=== PATIENT | male | born 1975 | race Caucasian/White ===

== ENCOUNTER 2019-01-02 18:35 | Emergency (ER) | payer MEDICAID ==
--- NOTE | 2019-01-02 18:30 | EDPHY ---
H & P Time Seen by Provider: 01/02/19 18:44 Constitutional: Initial Vital Signs Temperature (C) 36.8 C 01/02/19 18:45 Heart Rate 109 H 01/02/19 18:45 Respiratory Rate 18 01/02/19 18:45 Blood Pressure 128/87 H 01/02/19 18:45 O2 Sat (%) 97 01/02/19 18:45 O2 Delivery Mode Room Air Allergies/Adverse Reactions: No Known Allergies Allergy (Verified 01/02/19 18:44) Home Medications: Medication Instructions Recorded NK [No Known Home Meds] 06/12/18 Medical Decision Making ED Course/Re-evaluation: CHIEF COMPLAINT: Psychiatric evaluation HISTORY OF PRESENT ILLNESS: The patient is a 43 y/o male arriving via EMS on an M1 hold. The patient was recently discharged from [facility]. Today he was found on the third floor of the old [facility] parking garage wanting to jump. He was able to be talked down and has been cooperative since. No homicidal ideations or hallucinations. No fever, headache, body aches, lightheadedness, chest pain, heart palpitations , shortness of breath, cough, abdominal pain, urinary or bowel complaints, numbness, paresthesias. REVIEW OF SYSTEMS: A comprehensive 10 system review of systems is otherwise negative aside from elements mentioned in the history of present illness and medical decision making. PHYSICAL EXAM: General Appearance: Alert, well hydrated, appropriate, and non-toxic appearing. Head: Atraumatic without scalp tenderness or obvious injury Eyes: Pupils equal, round, reactive to light and accommodation, EOMI, no trauma , no injection. Ears: Clear bilaterally, no perforation, normal landmarks Nose: Atraumatic, no rhinorrhea, clear. Throat: There is no erythema or exudates, no lesions, normal tonsils, mucus membranes moist. Neck: Supple, 2+ carotid upstroke, nontender, no lymphadenopathy. Respiratory: No retractions, no distress, no wheezes, and no accessory muscle use. Lungs are clear to auscultation bilaterally. Cardiovascular: Regular rate and rhythm, no murmurs, rubs, or gallops. Bilateral carotid, radial, dorsalis pedis, and posterior tibial pulses intact. Good capillary refill all extremities. Gastrointestinal: Abdomen is soft, nontender, non-distended, no masses, no rebound, no guarding, no peritoneal signs. Musculoskeletal: Normal active ROM of all extremities, atraumatic. Neurological: Alert, appropriate, and interactive. The patient has normal DTRs and non-focal cranial nerves, motor, sensory, and cerebellar exam. Skin: No rashes, good turgor, no nodules on palpation. Psych: Expresses suicidal ideations. No homicidal ideations. No hallucinations. Past medical history: Depression Past surgical history: Denies Family history: Denies Social history: Single, not employed, transient DIFFERENTIAL DIAGNOSIS: The differential diagnosis for the patient's depression included but was not limited to functional and major depression, situational depression, medication side effect, drugs, and alcohol abuse. MEDICAL DECISION MAKING: The patient is a 43 y/o male arriving via EMS on an M1 hold. The patient was recently discharged from [facility]. Today he was found on the third floor of the old [facility] parking garage wanting to jump. He was able to be talked down and has been cooperative since. No homicidal ideations or hallucinations. Patient is in no acute distress and is hemodynamically stable. We are awaiting psychiatric team's evaluation. Patient has known history of psychiatric disorders and is here for evaluation. Patient care turned over to Dr. Noyola at shift change pending mental health eval. (Nilay Gutierrez) 6:45 a.m.- Patient is stable overnight. Seen by the mental health multimedia producer this morning. They are looking for placement for him at [facility] at this time. The case will be signed out to the oncoming provider Dr. Martinez. (Manuela Noyola ) 8:30 a.m. the patient has been evaluated by Mental Health. They have spoken with the on-call psychiatrist Dr. Delacruz as well as with [facility] who recently discharged him. They all agree that the patient is malingering and looking for fci. They recommend discharge. They have lifted the hold. ( Nicolas Martinez) Differential Diagnosis: Partial list of the Differential diagnosis considered include but were not limited to; malingering, suicidal ideation, depression, anxiety, polysubstance abuse and although unlikely based on the history and physical exam, I also considered head injury, infection. (Nicolas Martinez) - Data Points Laboratory Results: Laboratory Results 01/02/19 18:35 01/02/19 18:35 Departure - Departure Disposition: Home, Routine, Self-Care Clinical Impression: Polysubstance abuse, Malingering Condition: Fair Instructions: Polysubstance Abuse (ED) Referrals: NONE *PRIMARY CARE P,. [Primary Care Provider] - As per Instructions [facility],. [Clinic] - As per Instructions Report Scribed for: Nilay Gutierrez Report Scribed by: Mary Toussaint Date of Report: 01/02/19 Time of Report: 18:33
[2019-01-02 18:51] LABS: PLATELET COUNT 238 10^3/uL (150-400)
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
[2019-01-03 07:59] VITALS: BP 112/71
--- NOTE | 2019-01-03 08:40 | ASMTTCLDSP ---
TLC Discharge Disposition Disposition: Answers: Discharge If Answers: Yes DISCHARGED: Patient/family given suicide hotline info & SAMHSA brochure? Disposition Notes: Notes: Pt was given local hotline information and SAMHSA brochure After an Attempt. Discharge Concerns/Recommendations: Notes: In consultation with [facility] ED physician, Nicolas Martinez MD, and on-call psychiatrist, Ken Delacruz MD, [facility], all concurred that pt does not appear to meet 27-65 criteria requiring psychiatric hospitalization as pt does not appear to be an imminent risk of harm to self/others/gravely disabled due to a mental illness condition, appears to be long-term seeking and malingering. Dr. Martinez provided verbal order read back vacating M1 hold at 0830 hrs. Was patient given the Answers: Not applicable Inpatient Behavioral Health Prohibited Belongings List while in the ED? Psychiatrist vacating M1 Nicolas Martinez MD Hold: Date and time M1 hold 01/03/2019 08:30 AM vacated (time format is hh:mm): Type of Hold: Answers: M1/72-hour Hold Hold initiated by: Answers: Police Date Signed: 01/03/2019 08:39 AM Electronically Signed By:Sanchez Valle
== END 2019-01-03 08:51 | disposition home or self-care (01) ==
LOC: EDUNIT#
DX: F19.10 Other psychoactive substance abuse, uncomplicated (principal); Z76.5 Malingerer [conscious simulation]
CPT/HCPCS: 80305; G0480